=== PATIENT | male | born 1970 | race Hispanic/Latino ===

== ENCOUNTER → 2020-03-10 | Outpatient (CLI) | payer OTHER ==
[~2020-03-10] MED LIST: IOHEXOL-350 75 ML VIAL IV ONE
== END | disposition home or self-care (01) ==
LOC: RAH 09:13
PROVIDERS: ATTEND Internal Medicine Gastroenterology
DX: N28.83 Nephroptosis (principal); N40.0 Benign prostatic hyperplasia without lower urinary tract symptoms; N29 Other disorders of kidney and ureter in diseases classified elsewhere; R16.1 Splenomegaly, not elsewhere classified
CPT/HCPCS: 74177; Q9967